=== PATIENT | female | born 1985 | race Caucasian/White ===

== ENCOUNTER 2021-06-13 10:07 | Emergency (ER) | payer BC, SELFPAY ==
[2021-06-13] MEDS ORDERED: NAPROXEN 500 MG TABLET PO ONE (10:15)
[2021-06-13 10:19] VITALS: BP 141/91; PULSE 90; TEMP 99.1; BMI 22.2
[2021-06-13] MEDS ORDERED: NAPROXEN 500 MG TABLET ONE (10:38)
== END 2021-06-13 11:19 | disposition home or self-care (01) ==
LOC: FER 10:07
DX: S93.402A Sprain of unspecified ligament of left ankle, initial encounter (principal); W10.9XXA Fall (on) (from) unspecified stairs and steps, initial encounter
CPT/HCPCS: 73610-TC-LT-FY; 99283-25